=== PATIENT | male | born 1975 | race Caucasian/White ===

== ENCOUNTER 2020-05-28 19:23 | Emergency (ER) | payer OTHER ==
[2020-05-28 19:58] LABS: HEMOGLOBIN 14.9 gm/dl (14.0-17.5); RED BLOOD COUNT 4.94 M/UL (4.20-5.50); WHITE BLOOD COUNT 12.3 K/UL (4.5-11.0)
[2020-05-28 20:13] LABS: BUN/CREATININE RATIO 17 (0-10)
== END 2020-05-28 21:51 | disposition home or self-care (01) ==
LOC: ER1 19:23
PROVIDERS: Emergency Medicine
DX: I47.1 Supraventricular tachycardia (principal)
CPT/HCPCS: 36415; 71045; 80053; 82550; 82553; 83735; 83874; 84439; 84443; 84484; 85025; 93005; 96374; 99285; J0153